=== PATIENT | male | born 1965 | race Caucasian/White ===

== ENCOUNTER 2022-02-11 23:30 | Emergency (ER) | payer SELFPAY ==
[~2022-02-11] VITALS: Ht 170.2 cm; Wt 70.6 kg
[~2022-02-11 23:30] MED LIST: AMOX500C2 PO; [UNRECOGNIZED DRUG - CODE] PO
[2022-02-12] MEDS ORDERED: dexamethasone sod phosphate 10mg/ml inj IV STA (00:11)
[2022-02-12] MEDS ORDERED: ondansetron/PF 4mg/2ml inj IV ONE (00:15)
[2022-02-12] MEDS ORDERED: clindamycin 600mg/D5W 50ml 50 ML IV ONE (00:15)
[2022-02-12] MEDS ORDERED: normal saline 1000ML IV soln IVB ONE (00:15)
[2022-02-12 00:56] LABS: HEMOGLOBIN 15.6 g/dl (14.0-17.9); MEAN CORPUSCULAR HGB CONC 34.7 g/dL (33.0-36.5)
[2022-02-12 00:57] LABS: BASOPHILS # (AUTO) 0.1 X10'3 (0-0.2); BASOPHILS % (AUTO) 0.4 % (0-1); EOSINOPHILS # (AUTO) 0.2 X10'3 (0-0.9); EOSINOPHILS % (AUTO) 1.2 % (0-6); HEMATOCRIT 45.1 % (42.0-52.0); LYMPHOCYTES # (AUTO) 1.5 X10'3 (1.1-4.8); LYMPHOCYTES % (AUTO) 10.5 % (21-51); MEAN CORPUSCULAR HEMOGLOBIN 29.4 PG (27.0-31.0); MEAN CORPUSCULAR VOLUME 84.7 FL (78-98); MEAN PLATELET VOLUME 7.7 FL (7.4-10.4); NEUTROPHILS # (AUTO) 11.8 X10'3 (1.8-7.7); NEUTROPHILS % (AUTO) 80.9 % (42-75); PLATELET COUNT 329 X10'3 (140-440); RED BLOOD COUNT 5.32 X10'6 (4.70-6.10); RED CELL DISTRIBUTION WIDTH 13.5 % (11.5-14.5); WHITE BLOOD COUNT 14.6 X10'3 (4.5-11.0)
[2022-02-12 01:11] LABS: ALANINE AMINOTRANSFERASE 22 U/L (12-78); ALBUMIN 2.8 G/DL (3.4-5.0); ALBUMIN/GLOBULIN RATIO 0.6 (1.1-1.5); ALKALINE PHOSPHATASE 164 IU/L (46-116); ANION GAP 8 (8-16); ASPARTATE AMINO TRANSFERASE 9 U/L (10-37); BILIRUBIN,TOTAL 0.6 MG/DL (0.1-1.0); BLOOD UREA NITROGEN 11 MG/DL (7-18); BUN/CREATININE RATIO 16.9 (5.4-32.0); CHLORIDE 101 MMOL/L (99-107); CREATININE 0.65 MG/DL (0.60-1.10); GLUCOSE 297 MG/DL (70-104); POTASSIUM 3.7 MMOL/L (3.5-5.1); SODIUM 135 MMOL/L (135-145); TOTAL CARBON DIOXIDE 26.4 MMOL/L (24-32); TOTAL PROTEIN 7.3 G/DL (6.4-8.2); eGFR > 90 ML/MIN
[2022-02-12] MEDS ORDERED: iohexol 300mg/ml 100ml inj. ONE (01:39)
--- NOTE | 2022-02-12 01:51 | NUR ---
PT. 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
--- NOTE | 2022-02-12 06:16 | NUR ---
Gave report to AIDEE Joe. at [facility].
[2022-02-12 06:42] VITALS: BP 131/75
== END 2022-02-12 06:44 | disposition admitted as inpatient to this hospital (09) ==
LOC: ER 23:31
DX: J36 Peritonsillar abscess (principal)
CPT/HCPCS: 36415; 70491; 80053; 83605; 85025; 87040; 96365; 96366; 96375; 99285; J1100; J2405; J3490; J7030; Q9967